=== PATIENT | male | born 1970 | race Caucasian/White ===

== ENCOUNTER 2020-10-01 22:03 | Emergency (ER) | payer MEDICAID ==
[~2020-10-01] VITALS: Ht 177.8 cm; Wt 77.3 kg
[2020-10-01 22:57] LABS: BASO % 0 % (0-3); EOS # 0.1 x10^3/uL (0.0-0.7); EOS % 1 % (0-3); HEMATOCRIT 36.4 % (39.0-53.0); HEMOGLOBIN 11.9 g/dL (13.0-17.5); LYMPH # 3.4 x10^3/uL (1.0-4.8); LYMPH % 23 % (24-48); MEAN CORPUSCULAR HEMOGLOBIN 31 pg (25-35); MEAN CORPUSCULAR HGB CONC 33 g/dL (31-37); MEAN CORPUSCULAR VOLUME 93 fL (79-100); MONO # 1.3 x10^3/uL (0.0-1.1); MONO % 9 % (0-9); NEUT # 9.8 x10^3uL (1.8-7.7); NEUT % 67 % (31-73); PLATELET COUNT 315 x10^3/uL (140-400); RED BLOOD COUNT 3.91 x10^6/uL (4.30-5.70); RED CELL DISTRIBUTION WIDTH 12.9 % (11.5-14.5); WHITE BLOOD COUNT 14.6 x10^3/uL (4.0-11.0)
[2020-10-01 23:07] LABS: CALCIUM 8.7 mg/dL (8.5-10.1); CREATININE 1.3 mg/dL (0.7-1.3); GFR 58.2; POTASSIUM 4.3 mmol/L (3.5-5.1)
[2020-10-01 23:12] LABS: ALBUMIN 3.8 g/dL (3.4-5.0); ALBUMIN/GLOBULIN RATIO 1.3 (1.0-1.7); TOTAL BILIRUBIN 0.4 mg/dL (0.2-1.0); TOTAL PROTEIN 6.8 g/dL (6.4-8.2)
[2020-10-01 23:14] LABS: ACETAMIN < 2 mcg/mL (10-30); SALIC < 2.8 mg/dL (2.8-20.0)
[2020-10-01 23:15] LABS: ETHANOL < 10 mg/dL (0-10)
--- NOTE | 2020-10-01 23:24 | PHYS DOC ---
Adult General Chief Complaint Chief Complaint: PSYCH EVALUATION [facility] HPI Patient is a 49-year-old male with a past medical history significant for bipolar, manic depression and anxiety who presents to the emergency department with a chief complaint of audio hallucinations. Patient states that he is hearing voices telling him to hurt himself because he is not worried the and is having thoughts of committing suicide. States that he was in [facility] up until yesterday and was discharged home. States that he told them there that he was still hearing voices and did not feel that he was ready to be discharged home it and did not feel safe but was discharged anyway. States that they did not discharge him on any other medications but what he usually takes, Cymbalta. States that he has been taking a while and it did not seem to be helping. States he has been hearing these voices for a couple of months. Denies any alcohol or drug use. Denies any homicidal ideations or visual/tactile hallucinations. Review of Systems Review of Systems Review of systems otherwise unremarkable except noted in HPI Physical Exam Physical Exam Constitutional: Well developed, well nourished, no acute distress, non-toxic appearance. [] HENT: Normocephalic, atraumatic, bilateral external ears normal, oropharynx moist, no oral exudates, nose normal. [] Eyes: PERRLA, EOMI, conjunctiva normal, no discharge. [] Neck: Normal range of motion, no tenderness, supple, no stridor. [] Cardiovascular:Heart rate regular rhythm, no murmur [] Lungs & Thorax: Bilateral breath sounds clear to auscultation [] Abdomen: soft, no tenderness, no masses, no pulsatile masses. [] Skin: Warm, dry, no erythema, no rash. [] Back: No tenderness, no CVA tenderness. [] Extremities: No tenderness, no cyanosis, no clubbing, ROM intact, no edema. [] Neurologic: Alert and oriented X 3, normal motor function, normal sensory function, able to sit, stand and walk without issue, no focal deficits noted. [] Psychologic: Flat affect, depressed mood Current Patient Data Lab Results Laboratory Tests Test 10/01/20 22:38 White Blood Count 14.6 x10^3/uL (4.0-11.0) H Red Blood Count 3.91 x10^6/uL (4.30-5.70) L Hemoglobin 11.9 g/dL (13.0-17.5) L Hematocrit 36.4 % (39.0-53.0) L Mean Corpuscular Volume 93 fL (79-100) Mean Corpuscular Hemoglobin 31 pg (25-35) Mean Corpuscular Hemoglobin Concent 33 g/dL (31-37) Red Cell Distribution Width 12.9 % (11.5-14.5) Platelet Count 315 x10^3/uL (140-400) Neutrophils (%) (Auto) 67 % (31-73) Lymphocytes (%) (Auto) 23 % (24-48) L Monocytes (%) (Auto) 9 % (0-9) Eosinophils (%) (Auto) 1 % (0-3) Basophils (%) (Auto) 0 % (0-3) Neutrophils # (Auto) 9.8 x10^3uL (1.8-7.7) H Lymphocytes # (Auto) 3.4 x10^3/uL (1.0-4.8) Monocytes # (Auto) 1.3 x10^3/uL (0.0-1.1) H Eosinophils # (Auto) 0.1 x10^3/uL (0.0-0.7) Basophils # (Auto) 0.0 x10^3/uL (0.0-0.2) EKG EKG [] Radiology/Procedures Radiology/Procedures [] Heart Score C/O Chest Pain: No Risk Factors: Risk Factors: DM, Current or recent (<one month) smoker, HTN, HLP, family history of CAD, obesity. Risk Scores: Risk Factors: DM, Current or recent (<one month) smoker, HTN, HLP, family history of CAD, obesity. Course & Med Decision Making Course & Med Decision Making Patient is a 49-year-old male who presents to the emergency department with suicidal ideation with audio hallucinations telling him he is worthless and should end his life Vital signs not concerning. Physical exam noted above. Patient given dose of Haldol for audio hallucinations. EKG noted above with no STEMI and normal QTC. Laboratory analysis not concerning. Psychiatric assessment team evaluated patient and felt that he was appropriate for admission back to [facility] as he was just discharged yesterday. Stated that [facility] does have an available bed. Discussed all findings with patient who verbalized understanding and agreed with plan of transfer and admission back to [facility]. [] Dragon Disclaimer Dragon Disclaimer This electronic medical record was generated, in whole or in part, using a voice recognition dictation system. Departure Departure: Impression: Primary Impression: Suicidal ideation Additional Impression: Auditory hallucinations [facility] Condition: STABLE Referrals: LORI ANDREW MD (PCP) Problem Qualifiers BLACK GIBSON MD October 01, 2020 23:24
--- NOTE | 2020-10-02 00:12 | EKG ---
[address] [id number] Test Date: 2020-10-01 Test Time: 23:38:59 Pat Name: PEACE BAUER Department: Room: Gender: M [employer]: : 1970 Requested By: BLACK GIBSON Order Number: [id number] Reading MD: Measurements Intervals [place] Rate: 91 P: 49 NM: 164 QRS: -11 QRSD: 90 T: 26 QT: 368 QTc: 454 Interpretive Statements SINUS RHYTHM LEFTWARD AXIS OTHERWISE NORMAL ECG RI6.02 No previous ECG available for comparison
[2020-10-02] MEDS ORDERED: HALOPERIDOL 5 MG TABLET PO ONE (01:30)
[2020-10-02 03:49] LABS: BARBITURATES NEG (NEG); BENZODIAZEPINES NEG (NEG); CANNABINOIDS NEG (NEG); COCAINE NEG (NEG); METHADONE NEG (NEG); OPIATES NEG (NEG); PHENCYCLIDINE NEG (NEG)
[2020-10-02 03:59] LABS: AMPHETAMINE/METHAMPHETAMINE NEG (NEG)
[2020-10-02] MEDS ORDERED: ACETAMINOPHEN 500 MG TABLET PO ONE (07:00)
[2020-10-02] MEDS ORDERED: KETOROLAC 60 MG/2 ML VIAL. IM ONE (09:30)
[2020-10-02 10:15] VITALS: BP 116/47
== END 2020-10-02 10:15 ==
LOC: ER 22:03
DX: R45.851 Suicidal ideations (principal); R44.0 Auditory hallucinations; F41.9 Anxiety disorder, unspecified; F31.9 Bipolar disorder, unspecified
CPT/HCPCS: 36415; 80053; 80307; 80329; 85025; 93005; 96372; 99285; G0480; J1885